=== PATIENT | male | born 1990 | race Caucasian/White ===

== ENCOUNTER 2016-09-14 02:53 | Emergency (ER) | payer MEDICARE, OTHER ==
[~2016-09-14] VITALS: Ht 193 cm; Wt 127.0 kg
[~2016-09-14 02:53] MED LIST: AMOXICILLIN500 MG PO; ATIVAN PO; BACTRIM DS 8001 TA1 PO; CLARITIN10 MG PO; Fioricet 325 MG1 TAB PO; KEFLEX500 MG PO; LEVOFLOXACIN500 MG PO; MEDROL DOSEPAK4 MG; MEDROL DOSEPAK4 MG PO; MOTRIN800 MG PO; MUCINEX DM 30/61 TAB PO; NORCO 325 MG-51 TAB PO; PENICILLIN VK500 MG PO; ROBITUSSIN AC 110 ML PO; TRAMADOL HCL50 MG PO; VITAMIN D1000 IU PO; ZITHROMAX Z PA250 MG PO; ZOFRAN ODT4 MG SL
[2016-09-14 03:21] LABS: BASO % 0.3 % (0.0-1.0); EOS # 0.1 10*3/uL (0.0-0.4); EOS % 0.7 % (1.0-4.0); HEMOGLOBIN 15.9 g/dl (14.0-18.0); MEAN CELL VOLUME 88.4 fl (80.0-94.0); MEAN CORPUSCULAR HGB 29.3 pg (27.0-31.0); MEAN CORPUSCULAR HGB CONC 33.1 g/dl (33.0-37.0); MEAN PLATELET VOLUME 9.8 fl (9.6-12.3); MONO # 0.8 10*3/uL (0.1-1.0); MONO % 6.1 % (3.0-9.0); NEUT # 11.8 10*3/uL (2.3-7.9); NEUT % 85.7 % (47.0-73.0); PLATELET COUNT AUTOMATED 240 10*3/uL (130-400); RED BLOOD COUNT 5.43 10*6/uL (4.50-5.90); RED CELL DISTRI WIDTH 12.3 % (0-14.5); WHITE BLOOD COUNT 13.7 10*3/uL (4.8-10.8)
[2016-09-14 03:34] LABS: BUN 12 mg/dl (7-24); CARBON DIOXIDE 25 mmol/L (21-32); CHLORIDE 108 mmol/L (98-107); EST GLOM FILT AFRICAN AMERICAN > 60 ml/min; GLUCOSE 136 mg/dL (65-99); POTASSIUM 3.8 mmol/L (3.5-5.1); SODIUM 144 mmol/L (136-145)
[2016-09-14] MEDS ORDERED: ZOFRAN4 MG PO (05:35)
== END 2016-09-14 05:55 | disposition home or self-care (01) ==
LOC: ED 02:53
PROVIDERS: Emergency Medicine
DX: D72.829 Elevated white blood cell count, unspecified (principal); M79.1 Myalgia; R11.2 Nausea with vomiting, unspecified; Z91.038 Other insect allergy status

== ENCOUNTER 2017-08-25 22:31 | Emergency (ER) | payer MEDICARE, OTHER ==
[~2017-08-25] VITALS: Ht 195.5 cm; Wt 127.0 kg
[~2017-08-25 22:31] MED LIST changes: +ZOFRAN4 MG PO
[2017-08-25] MEDS ORDERED: AMOXICILLIN500 M2 PO (23:41)
[2017-08-25] MEDS ORDERED: PREDNISONE20 M1 PO (23:41)
[2017-08-26] MEDS ORDERED: ZITHROMAX250 MG PO (00:01)
== END 2017-08-26 00:47 | disposition home or self-care (01) ==
LOC: ED 22:31
DX: J20.9 Acute bronchitis, unspecified (principal); Z91.030 Bee allergy status

== ENCOUNTER 2021-03-31 11:11 | Emergency (ER) | payer MEDICARE, OTHER ==
[~2021-03-31] VITALS: Ht 193 cm; Wt 127.0 kg
[~2021-03-31 11:11] MED LIST changes: +AMOXICILLIN500 M2 PO; +PREDNISONE20 M1 PO; +ZITHROMAX250 MG PO
[2021-03-31] MEDS ORDERED: TYLENOL325 M1 PO (11:55)
== END 2021-03-31 11:59 | disposition home or self-care (01) ==
LOC: ED 11:11
DX: M54.5 Low back pain (principal); E66.9 Obesity, unspecified; Z91.030 Bee allergy status; Z88.0 Allergy status to penicillin; Z79.2 Long term (current) use of antibiotics; Z79.899 Other long term (current) drug therapy

== ENCOUNTER 2023-05-19 17:15 | Emergency (ER) | payer MEDICARE, OTHER ==
[~2023-05-19] VITALS: Ht 193 cm; Wt 127.0 kg
[~2023-05-19 17:15] MED LIST changes: +TYLENOL325 M1 PO
[2023-05-19 18:48] LABS: BASO # 0.1 10*3/uL (0.0-0.1); BASO % 0.6 % (0.0-1.0); EOS # 0.2 10*3/uL (0.0-0.4); EOS % 2.2 % (1.0-4.0); HEMATOCRIT 46.3 % (42.0-52.0); LYMPH # 2.9 10*3/uL (1.3-4.4); LYMPH % 27.7 % (27.0-41.0); MEAN CELL VOLUME 88.9 fl (80.0-94.0); MEAN CORPUSCULAR HGB 29.8 pg (27.0-31.0); MEAN CORPUSCULAR HGB CONC 33.5 g/dl (33.0-37.0); MONO # 0.7 10*3/uL (0.1-1.0); MONO % 6.6 % (3.0-9.0); NEUT # 6.6 10*3/uL (2.3-7.9); NEUT % 62.6 % (47.0-73.0); PLATELET COUNT AUTOMATED 254 10*3/uL (130-400); RED BLOOD COUNT 5.21 10*6/uL (4.50-5.90); RED CELL DISTRI WIDTH 12.8 % (0-14.5); WHITE BLOOD COUNT 10.5 10*3/uL (4.8-10.8)
[2023-05-19 19:09] LABS: ALKALINE PHOSPHATASE 128 U/L (46-116); BUN 16 mg/dl (9-23); CHLORIDE 107 mmol/L (98-107); POTASSIUM 3.5 mmol/L (3.4-5.1); SGPT/ALT 73 U/L (10-49); TOTAL PROTEIN 7.4 gm/dL (6.0-8.0)
== END 2023-05-19 22:11 | disposition home or self-care (01) ==
LOC: ED 17:15
PROVIDERS: Nurse Practitioner
DX: B97.4 Respiratory syncytial virus as the cause of diseases classified elsewhere (principal); F41.9 Anxiety disorder, unspecified; F31.9 Bipolar disorder, unspecified; Z91.030 Bee allergy status; Z88.0 Allergy status to penicillin; Z20.822 Contact with and (suspected) exposure to COVID-19

== ENCOUNTER 2023-08-17 16:03 | Emergency (ER) | payer MEDICARE, OTHER ==
[~2023-08-17] VITALS: Ht 193 cm; Wt 122.5 kg
[2023-08-17] MEDS ORDERED: POLYTRIM 1000010 ML OPH (17:18)
== END 2023-08-17 17:23 | disposition home or self-care (01) ==
LOC: ED 16:03
DX: H10.9 Unspecified conjunctivitis (principal); Z91.030 Bee allergy status; Z88.0 Allergy status to penicillin

== ENCOUNTER 2024-07-27 00:44 | Emergency (ER) | payer MEDICARE, OTHER ==
[~2024-07-27] VITALS: Ht 185.4 cm; Wt 122.5 kg
[~2024-07-27 00:44] MED LIST changes: +POLYTRIM 1000010 ML OPH
[2024-07-27] MEDS ORDERED: Tdap Vaccine 0.5 ML SYR (Adult Vaccine) IM ONE (01:30)
[2024-07-27] MEDS ORDERED: CEPHALEXIN500 M1 PO (02:42)
== END 2024-07-27 02:58 | disposition home or self-care (01) ==
LOC: ED 00:44
DX: S61.210A Laceration without foreign body of right index finger without damage to nail, initial encounter (principal); Z91.030 Bee allergy status; Z88.0 Allergy status to penicillin; Z79.899 Other long term (current) drug therapy; W45.8XXA Other foreign body or object entering through skin, initial encounter; Y93.89 Activity, other specified; Y92.89 Other specified places as the place of occurrence of the external cause; Y99.8 Other external cause status